=== PATIENT | male | born 1990 | race Caucasian/White ===

== ENCOUNTER 2021-04-03 10:29 | Emergency (ER) | payer SELFPAY ==
[~2021-04-03] VITALS: Ht 175.3 cm; Wt 86.2 kg
[2021-04-03 12:50] LABS: URINE BILIRUBIN - DIPSTICK NEGATIVE (NEGATIVE); URINE BLOOD DIPSTICK SMALL (NEGATIVE); URINE COLOR YELLOW; URINE GLUCOSE - DIPSTICK NEGATIVE (NEGATIVE); URINE KETONE NEGATIVE (NEGATIVE); URINE LEUK ESTERASE NEGATIVE (NEGATIVE); URINE PH 6.5 (4.5-8.0); URINE PROTEIN - DIPSTICK NEGATIVE (NEG-TRACE); URINE UROBILINOGEN - DIPSTICK 0.2 E.U./dL (0.2)
[2021-04-03 12:51] LABS: HEMATOCRIT 43.3 % (39.0-50.0); HEMOGLOBIN 14.2 g/dl (14.0-18.0); IMMATURE GRANULOCYTES 0.2 % (0.0-5.0); MEAN CELL VOLUME 93.3 fL CALC (80.0-100.0); MEAN CORPUSCULAR HGB 30.6 pG CALC (26.0-32.0); MEAN CORPUSCULAR HGB CONC 32.8 g/dL CAL (32.0-36.0); NEUT# 7.48 thou/uL (1.82-7.42); RED BLOOD COUNT 4.64 mill/uL (4.70-6.10); RED CELL DISTRI WIDTH 12.4 % (11.5-15.5)
[2021-04-03 13:03] LABS: ALBUMIN 4.3 g/dL (3.2-5.0); ALKALINE PHOSPHATASE 53 u/l (38-126); ANION GAP 11 (6-22 (CALC)); BILIRUBIN, TOTAL 0.5 mg/dL (0.0-1.4); BUN 18 mg/dL (9-20); BUN/CREATININE RATIO 17 (12-20 (CALC)); CARBON DIOXIDE 26 mmol/l (22-30); CHLORIDE 106 mmol/l (95-108); CREATININE 1.1 mg/dL (0.7-1.3); GFR > 60 ML/MIN (>=60 (CALC)); GFR FOR AFR.AMER. > 60 ML/MIN (>=60 (CALC)); LIPASE 64 u/l (23-300); POTASSIUM 4.5 mmol/l (3.5-5.1); SGOT/AST 32 u/l (17-59); SODIUM 138 mmol/l (137-146); TOTAL PROTEIN 7.3 g/dL (6.3-8.2)
[2021-04-03 13:04] LABS: URINE NITRITE - DIPSTICK NEGATIVE (Negative); URINE RBC 0-2 RBC/hpf (0-5)
[2021-04-03] MEDS ORDERED: CIPROFLOXACN500 MG PO (14:23)
[2021-04-03] MEDS ORDERED: METRONIDAZOL500 MG PO (14:23)
[2021-04-03 14:30] VITALS: BP 134/78
== END 2021-04-03 14:35 | disposition home or self-care (01) | DRG 387 ==
LOC: ED 10:29
PROVIDERS: Physician Assistant Surgical
DX: K50.10 Crohn's disease of large intestine without complications (principal); F17.210 Nicotine dependence, cigarettes, uncomplicated; K76.0 Fatty (change of) liver, not elsewhere classified
CPT/HCPCS: Q9967

== ENCOUNTER 2022-02-20 16:55 | Emergency (ER) | payer SELFPAY ==
[~2022-02-20] VITALS: Ht 175.3 cm; Wt 81.8 kg
[~2022-02-20 16:55] MED LIST: CIPROFLOXACN500 MG PO; METRONIDAZOL500 MG PO
[2022-02-20 17:03] VITALS: BP 138/84
[2022-02-20 17:15] VITALS: BP 126/84
[2022-02-20 17:30] VITALS: BP 115/79
[2022-02-20] MEDS ORDERED: BACTRIM DS1 TAB PO (17:44)
[2022-02-20] MEDS ORDERED: KEFLEX500 MG PO (17:44)
[2022-02-20 17:45] VITALS: BP 123/66
== END 2022-02-20 17:59 | disposition home or self-care (01) | DRG 603 ==
LOC: ED 16:55
PROC: 0H9KXZZ Drainage of Right Lower Leg Skin, External Approach (ICD-10-PCS; principal; 2022-02-20)
DX: L02.415 Cutaneous abscess of right lower limb (principal); L02.416 Cutaneous abscess of left lower limb; L03.116 Cellulitis of left lower limb; L03.115 Cellulitis of right lower limb; F17.210 Nicotine dependence, cigarettes, uncomplicated

== ENCOUNTER 2022-11-03 17:09 | Emergency (ER) | payer SELFPAY ==
[~2022-11-03] VITALS: Ht 175.3 cm; Wt 74.8 kg
[~2022-11-03 17:09] MED LIST changes: +BACTRIM DS1 TAB PO; +KEFLEX500 MG PO
[2022-11-03 18:34] VITALS: BP 134/80
[2022-11-03 18:45] VITALS: BP 132/109
[2022-11-03 19:00] VITALS: BP 130/82
[2022-11-03 19:32] VITALS: BP 108/74
[2022-11-03] MEDS ORDERED: VOLTAREN - GENE75 MG PO (20:50)
[2022-11-03 21:07] VITALS: BP 108/74
== END 2022-11-03 21:11 | disposition home or self-care (01) | DRG 563 ==
LOC: ED 17:09
PROC: 0RSXXZZ Reposition Left Finger Phalangeal Joint, External Approach (ICD-10-PCS; principal; 2022-11-03)
DX: S62.627A Displaced fracture of middle phalanx of left little finger, initial encounter for closed fracture (principal); F17.210 Nicotine dependence, cigarettes, uncomplicated; W22.8XXA Striking against or struck by other objects, initial encounter; Y93.H3 Activity, building and construction; Y92.009 Unspecified place in unspecified non-institutional (private) residence as the place of occurrence of the external cause